=== PATIENT | male | born 1960 | race Caucasian/White ===

== ENCOUNTER 2024-06-25 15:54 | Emergency (ER) | payer OTHER ==
[2024-06-25 16:17] VITALS: RESP 18
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
[2024-06-25] MEDS: LIDOCAINE 4% PATCH TOPICAL ONE (18:29)
[2024-06-25] MEDS: ACETAMINOPHEN TAB 325 MG TAB PO STA (18:32)
[2024-06-25] MEDS: IBUPROFEN 400 MG TAB PO STA (18:33)
[2024-06-25 18:38] VITALS: BP 134/79; PULSE 91; TEMP 97.6
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
[2024-06-25] MEDS: ACET/COD 300 MG/30 MG STARTER PACK 6 TAB BTL PO STA (19:36)
== END 2024-06-25 19:40 | disposition home or self-care (01) ==
LOC: EC 15:54
DX: S32.010A Wedge compression fracture of first lumbar vertebra, initial encounter for closed fracture (principal); F17.200 Nicotine dependence, unspecified, uncomplicated; V49.49XA Driver injured in collision with other motor vehicles in traffic accident, initial encounter; Y92.410 Unspecified street and highway as the place of occurrence of the external cause
CPT/HCPCS: 72100; 72131; 99284

== ENCOUNTER → 2024-08-11 | Outpatient (CLI) | payer OTHER ==
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
== END | disposition home or self-care (01) ==
LOC: RADMRIMAIN 19:26
PROVIDERS: ATTEND Specialist
DX: S32.010A Wedge compression fracture of first lumbar vertebra, initial encounter for closed fracture (principal); V87.7XXA Person injured in collision between other specified motor vehicles (traffic), initial encounter; M43.16 Spondylolisthesis, lumbar region; M47.816 Spondylosis without myelopathy or radiculopathy, lumbar region; S32.018A Other fracture of first lumbar vertebra, initial encounter for closed fracture
CPT/HCPCS: 72148